=== PATIENT | female | born 1960 | race Caucasian/White ===

== ENCOUNTER 2016-12-18 12:15 | Day surgery (SDC) | payer BC ==
[~2016-12-18 12:15] MED LIST: Acetaminophen TAB* 325 MG PO PRN; Acetylcholine 1:100 OPTH* OPHTH.SOLN ONE; Buffered Lidocaine 0.9% SYRIN* 5 ML/SYR SYRINGE INTRADERM ONE; Hyaluronidase OVINE* 200 UNIT/ML ML SUBCUT ONE; Lidocaine 1% MPF* 2 ML VIAL ONE; Lidocaine 2% EPI 1:200000 MPF* 20 ML VIAL ONE; Lidocaine 2% PF* 10 ML AMP ONE; Lidocaine 2% W/EPI 1:100,000* 20 ML MDV ONE; Neomycin/Polymy/Dex OPTH.SUSP* MAXITROL 0.1% 5 ML ONE; Phenylephrine 2.5% OPTH.SOL* 2 ML BTL ONE; Povidone Iodine 5% OPTH* 30 ML BTL ONE; Sodium Bicarbonate 8.4% SYR* 10 ML SYRINGE ONE; Triamcinolone OPHTH Inj (NF) 40 MG/ML 1 ML VIAL *** OPHTH USE ONLY ONE
[2016-12-18] MEDS ORDERED: Proparacaine 0.5% OPHTH.SOL* 15 ML BTL ONE (12:41)
[2016-12-18] MEDS ORDERED: Midazolam* 1 MG/ML 2 ML VIAL (2 MG) ONE (13:50)
[2016-12-18] MEDS ORDERED: fentaNYL* 50 MCG/ML 2 ML VIAL (100 MCG VIAL) ONE (13:50)
[2016-12-18] MEDS ORDERED: BSS OPTH.SOL* BTL ONE (14:06)
[2016-12-18 14:42] VITALS: BP 138/64
--- NOTE | 2016-12-19 03:24 | OP ---
DATE OF OPERATION: 12/18/16 - [facility] DATE OF : 60 SURGEON: Jayson Beckett MD ANESTHESIA: Local with MAC. PREOPERATIVE DIAGNOSES: Uncontrolled glaucoma, left eye, vitreous prolapse, and malpositioned implant. POSTOPERATIVE DIAGNOSES: Uncontrolled glaucoma, left eye, vitreous prolapse, and malpositioned implant. OPERATIVE PROCEDURE: IOL refixation and an anterior vitrectomy, left eye. COMPLICATIONS: None. DESCRIPTION OF PROCEDURE: The patient was given retrobulbar anesthesia in the operating, 50:50 mixture of 2% lidocaine with epinephrine and 0.75 of Marcaine, 4 cc were given in the muscle cone without difficulty. Eye was prepped and draped in the usual sterile fashion and then inspected. The implant was found to be freely mobile and decentered inferiorly. There was a small posterior capsular opening with vitreous herniating through the opening above the lens and into the Ahmed draining tube, which was at the 2 o'clock position. A 2 mm MDR was used to make an incision at the clear cornea at the 3 o'clock position and the 7 o'clock positions. 1% lidocaine with epinephrine was infused into the anterior chamber. DisCoVisc infused into the anterior chamber. Triesence was infused into the anterior chamber to highlight the vitreous gel. This was removed with thorough anterior vitrectomy, which was performed bimanually. Vitreous was completely removed and removed through the posterior capsular opening. Anterior chamber was refilled with DisCoVisc. There was an iris adhesion at 4 o'clock that was released. The decision was made to fixate the IOL to the iris since the patient had a hemangioma of the conjunctiva and glaucoma, and I wanted to preserve the conjunctiva for future possible surgeries. The implant optic was prolapsed anterior to the iris, used in the anterior chamber to constrict the pupil posterior to the optic. The haptic was sutured after dialing the lens into a good position to the mid peripheral iris using an interrupted 10-0 Prolene suture in a McCannel fashion at the 10 o'clock and 4 o'clock positions. The optic was then prolapsed back into the posterior chamber. The lens was well centered. Again, Triesence infused into the anterior chamber and further anterior vitrectomy was attempted , however there was actually no free vitreous. The 30-gauge cannula was then inserted with balanced salt solution into the mid valve tube opening and mid valve irrigated. Then anterior chamber was refilled with balanced salt solution. Topical Maxitrol was given and the eye was patched. [id number]/[facility] #: [id number] LETICIA
== END 2016-12-18 15:00 | disposition home or self-care (01) ==
LOC: OREAST 12:15
PROVIDERS: ATTEND Specialist
DX: H40.52X2 Glaucoma secondary to other eye disorders, left eye, moderate stage (principal); T85.22XA Displacement of intraocular lens, initial encounter; J44.9 Chronic obstructive pulmonary disease, unspecified; D69.6 Thrombocytopenia, unspecified; F17.210 Nicotine dependence, cigarettes, uncomplicated; I10 Essential (primary) hypertension; Y83.1 Surgical operation with implant of artificial internal device as the cause of abnormal reaction of the patient, or of later complication, without mention of misadventure at the time of the procedure
CPT/HCPCS: A9270-GY; J2001; J2250; J3010

== ENCOUNTER 2019-08-19 08:49 | Day surgery (SDC) | payer BC ==
--- NOTE | 2019-08-11 14:59 | HP ---
CC: Dr. Jony Walsh * PREOPERATIVE HISTORY AND PHYSICAL: DATE OF ADMISSION: 08/19/19 This patient is scheduled for same-day surgery admission by Dr. Karin Ortiz on , 08/19/19. DATE OF PREOPERATIVE HISTORY AND EXAMINATION: 08/10/19. ATTENDING SURGEON: Dr. Karin Ortiz * (dictated by Leslie Lopez NP). CHIEF COMPLAINT: Multinodular goiter. HISTORY OF PRESENT ILLNESS: The patient is a 59-year-old female with a history of hypertension, who presented to Dr. Ortiz with multinodular goiter. She states that she was first found to have multiple thyroid nodules in 2011 based on physical exam by Dr. Pittman. At that time, she underwent fine-needle aspiration biopsy, which was benign. She states that on a recent CT of the chest (she has a right lung nodule being followed by Dr. Arreaga). She was found to have an enlarged thyroid, which prompted a repeat thyroid ultrasound, which identified the multinodular goiter that had grown significantly since her study in 2011. The patient denies dysphagia, dysphonia, and dyspnea. She mainly has complaints of recurrent sinus infections and chronic cough. She denies any history of head or neck radiation or neck surgery; she has no family history of thyroid cancer, her mother did have a large goiter. Dr. 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 Dr. Ortiz reviewed the findings with the patient and recommended right thyroid lobectomy and the patient is agreeable to the plan. Dr. Ortiz discussed the nature of the surgical procedure, the rationale for the procedure, the relevant risks and benefits and today I reviewed the expected postoperative care and recovery. The patient has had a chance to ask questions and stated that she understands the information and is satisfied with the answers given to her questions. She will sign surgical consent on the day of surgery. PAST MEDICAL HISTORY: Hypertension; GERD; hypercholesterolemia; right lung nodule followed by Dr. Arreaga for the past 3 years, no significant change in size ; idiopathic thrombocytopenia also followed by Dr. 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 PAST SURGICAL HISTORY: Nasal surgery 2011, laparoscopic cholecystectomy, craniotomy in 1997 with a titanium plate inserted, left eye surgery in 1994 and left oophorectomy. MEDICATIONS: 1. Latanoprost 0.005%, instill 1 drop in the left eye at bedtime. 2. Omeprazole 20 mg p.o. daily. 3. Vitamin B12 ER 1 tablet p.o. daily. 4. Zinc 1 tablet daily. 5. Fish oil 1000 mg p.o. b.i.d. 6. CoQ10 one tablet daily. 7. Simvastatin 40 mg p.o. daily. 8. Metoprolol ER 100 mg p.o. daily. 9. Symbicort 80/4.5 mcg per actuation 2 puffs b.i.d. 10. Nicorette gum as needed as she is trying to quit smoking. 11. Multivitamin daily. 12. Losartan 100 mg p.o. daily. 13. Effexor 75 mg p.o. daily. 14. Ventolin 2 puffs every 4 hours as needed. 15. Spiriva 2 inhalations every morning as needed. 16. Timolol 0.5% eyedrops as directed. 17. Acidophilus daily. 18. Zyrtec 10 mg daily. 19. Sudafed 12 Hour daily as needed. 20. Magnesium 250 mg daily. 21. Turmeric 500 mg p.o. daily. ALLERGIES: TRAMADOL with unspecified reactions, but she has tolerated oxycodone , acetaminophen in the past. REVIEW OF SYSTEMS: Constitutional: No fevers, chills, excessive fatigue, or weight loss. General: No history of deep vein thrombosis or pulmonary embolism. No bleeding tendencies or blood transfusions. No anesthesia complications. ENMT: No significant visual difficulties, history of glaucoma, her hearing is somewhat diminished. She denies any current sinus infection or sore throat. Endocrine: No diabetes, thyroid disease as described in history of present illness. Respiratory: No dyspnea on exertion or chronic cough. Cardiovascular: No anginal chest pain or palpitations. Gastrointestinal: No nausea, vomiting, diarrhea, GI bleeding or constipation. Genitourinary: No dysuria. Musculoskeletal: Chronic bilateral knee pain. Integumentary: No chronic rashes or skin changes. Neurologic: No headache or blurred vision or areas of focal weakness or numbness. Psychiatric: No reported anxiety or insomnia; her 9 months ago and she is in grief counseling. FAMILY HISTORY: Mother with a history of type 2 diabetes and hypertension. Paternal grandmother with a history of ALS. No known anesthesia complications, bleeding tendencies, or clotting disorders. SOCIAL HISTORY: She is ; she is currently smoking up to a pack of cigarettes per day and is trying to quit. She denies alcohol use and has been sober for 20 years. She denies the use of other substances. PHYSICAL EXAMINATION GENERAL SURVEY: The patient is a 59-year-old obese female, well developed, well nourished, in no acute distress. VITAL SIGNS: Height 66 inches, weight 217 pounds, body mass index 36. Blood pressure 140/82, pulse 80 and regular, respiratory rate 18, temperature 97.8 tympanic. HEENT: Benign. NECK: Supple. No cervical lymphadenopathy. No obvious thyromegaly, but palpation reveals nodules bilaterally. LUNGS: Breath sounds bilaterally clear and equal. HEART: Regular rate and rhythm. No murmurs or rubs appreciated. ABDOMEN: Active bowel sounds, soft, nondistended, nontender throughout. BACK: No CVA tenderness. PELVIC: Exam deferred. RECTAL: Exam deferred. EXTREMITIES: Warm without edema or skin ulceration. NEUROLOGIC: Alert and oriented x3. Steady gait. SKIN: Birthmark over the left side of her face. No other skin changes. IMPRESSION: Multinodular goiter; Hurthle cell neoplasm. PLAN: Same-day surgery admission for right thyroid lobectomy by Dr. Ortiz on , 08/19/19. HENNA LOPEZ NP [id number]/[facility] #: [id number] LETICIA
[~2019-08-19 08:49] MED LIST changes: -Acetaminophen TAB* 325 MG PO PRN; -Acetylcholine 1:100 OPTH* OPHTH.SOLN ONE; -Buffered Lidocaine 0.9% SYRIN* 5 ML/SYR SYRINGE INTRADERM ONE; +Buffered Lidocaine 1% SYRIN* 1 ML/SYRINGE INTRADERM ONE; +Dexamethasone IV* 4 MG/ML 1 ML (4 MG) ONE; +Famotidine IV* 10 MG/ML 2 ML (20 mg) IV ONE; -Hyaluronidase OVINE* 200 UNIT/ML ML SUBCUT ONE; +KETAMINE HCL* 50 MG/ML 10 ML VIAL ONE; +Lactated Ringers 1000 ML Bag* 1,000 ML IV SCH; -Lidocaine 1% MPF* 2 ML VIAL ONE; -Lidocaine 2% EPI 1:200000 MPF* 20 ML VIAL ONE; +Lidocaine 2% PF * 5 ML VIAL ONE; -Lidocaine 2% PF* 10 ML AMP ONE; -Lidocaine 2% W/EPI 1:100,000* 20 ML MDV ONE; +Midazolam* 1 MG/ML 5 ML VIAL (5 MG) ONE; -Neomycin/Polymy/Dex OPTH.SUSP* MAXITROL 0.1% 5 ML ONE; +Ondansetron INJ* 2 MG/ML VIAL ONE; -Phenylephrine 2.5% OPTH.SOL* 2 ML BTL ONE; -Povidone Iodine 5% OPTH* 30 ML BTL ONE; +Propofol* 10 MG/ML 20 ML BTL ONE; -Sodium Bicarbonate 8.4% SYR* 10 ML SYRINGE ONE; +Succinylcholine* 20 MG/ML 10 ML VIAL ONE; -Triamcinolone OPHTH Inj (NF) 40 MG/ML 1 ML VIAL *** OPHTH USE ONLY ONE; +fentaNYL* 50 MCG/ML 2 ML VIAL (100 MCG VIAL) ONE
[2019-08-19] MEDS ORDERED: Buffered Lidocaine 1% SYRIN* 1 ML/SYRINGE INTRADERM ONE (09:06)
[2019-08-19] MEDS ORDERED: Famotidine IV* 10 MG/ML 2 ML (20 mg) ONE (09:06)
[2019-08-19] MEDS ORDERED: Bupivacaine 0.25% SDV* 30 ML ONE (09:40)
[2019-08-19] MEDS ORDERED: Lidocaine 1% INJ* 10 MG/ML 30 ML SDV ONE (09:40)
--- NOTE | 2019-08-19 09:56 | PN ---
Progress Note - Progress Note Date of Service: 08/19/19 Note: Surgery Progress Note Patient is a 59 yo F with a right thyroid nodule that was biopsied as [place] IV, suspicious for Hurthle cell neoplasm. She presents for a right thyroid lobectomy. I explained the surgery (right thyroid lobectomy) to the patient in detail and discussed at length the risks, benefits and alternatives. The risks include but are not limited to bleeding that can in rare circumstances require reoperation or result in airway compromise, wound infection, injury to the recurrent laryngeal nerve which may result in permanent hoarseness and hypoparathyroidism. Other general risks include scarring, injury of adjacent anatomic structures, poor wound healing and reactions to medications. The patient understands that thyroid hormone replacement may be required postoperatively. Expectations regarding recovery and return to normal activities were discussed.
[2019-08-19] MEDS ORDERED: VASOPRESSIN 20 UNITS/ML 1 ML VIAL ONE (10:36)
[2019-08-19] MEDS ORDERED: EPHEDrine (Pressors)* 50 MG/ML VIAL ONE (10:44)
[2019-08-19] MEDS ORDERED: Phenylephrine 40 MCG/ML SYRINGE ONE (10:45)
[2019-08-19] MEDS ORDERED: Norepinephrine VIAL* 1 MG/ML 4 ML VIAL ONE (11:15)
[2019-08-19] MEDS ORDERED: fentaNYL* 50 MCG/ML 2 ML VIAL (100 MCG VIAL) IV PRN (11:35)
[2019-08-19] MEDS ORDERED: Ondansetron INJ* 2 MG/ML VIAL IV PRN (11:35)
[2019-08-19] MEDS ORDERED: Naloxone* 0.4 MG/ML 1 ML VIAL IV PRN (11:35)
[2019-08-19] MEDS ORDERED: oxyCODONE/Acetamin 5/325 MG* TAB PO PRN (12:16)
[2019-08-19] MEDS ORDERED: Acetaminophen IV 1GM/100ML * 100 ML ONE (15:19)
[2019-08-19 17:54] VITALS: BP 130/65
--- NOTE | 2019-08-19 20:36 | OP ---
CC: Dr. Jony Walsh * DATE OF OPERATION: 08/19/19 - [facility] DATE OF : 60 SERVICE: General Surgery ATTENDING SURGEON: Karin Ortiz MD. MATERIALS BRANCH CHIEF: Leslie Hunter NP ANESTHESIOLOGIST: Dr. Padilla Cohen. PREP-OP DIAGNOSIS: Large right thyroid nodule, [place] IV. POST-OP DIAGNOSIS: Large right thyroid nodule, [place] IV. OPERATIVE PROCEDURE: Right thyroid lobectomy. ESTIMATED BLOOD LOSS: Minimal, less than 10 cc. SPECIMEN: Right thyroid lobe. INDICATIONS FOR SURGERY: Ms. Figueredo is a very pleasant 59-year-old female with a history of multinodular goiter. She underwent FNA biopsies of her right sided, isthmus and left sided thyroid nodules. Her right thyroid nodule returned as positive for [place] IV, suspicious for Hurthle cell neoplasm. Given that the malignancy risk for this diagnosis is up to 30%, the patient wished to undergo a right thyroid diagnostic lobectomy. She understood that the risks included, but were not limited to, bleeding, infection, injury to nearby structures such as recurrent laryngeal nerve. She understood the alternatives and benefits and she wished to proceed. DESCRIPTION OF PROCEDURE: The patient was brought back to the operating room and placed on the operating table in the supine position. Sequential compression devices were placed in the bilateral lower extremities for DVT prophylaxis. No antibiotics were administered. General endotracheal anesthesia was induced. The electrodes from the nerve monitor were attached. Next, a time-out was performed prior to administering local anesthesia to the neck, which consisted of 1% lidocaine and 0.25% Marcaine. After this was done, her neck was prepped and draped in normal sterile fashion. An additional time- out was performed verifying the patient's name, date of , and the procedure to be performed, which was a right thyroid lobectomy. An approximately 4 cm incision was made in her neck in a natural crease line 2 fingerbreadths above the sternal notch. The skin was divided down to the subcutaneous tissue. The platysma was divided, and the inferior and superior subplatysmal flaps were then developed. The median raphe between the strap muscles was identified and divided and the trachea was noted at the midline. Next, the isthmus of the thyroid lobe was divided at the midline just flushed with the left thyroid lobe. Once this was done, the medial attachments of the right thyroid lobe were divided using LigaSure. The space of Gilman between the right upper lobe and the cricothyroid muscle was developed and divided and then attention was turned towards retracting the strap muscles off of the right thyroid lobe and developing the lateral space. She had had previous biopsy on this site, and there were many adhesions of the strap muscle to the right thyroid lobe. The middle thyroid vein was identified and divided, and after this the superior pole vessels were isolated and divided using a combination of 2-0 silk sutures and LigaSure. After this, the right thyroid lobe (which was quite enlarged with her thyroid nodule) was rotated anteriorly and medially out of the neck. The recurrent laryngeal nerve was then identified both visually and with the nerve monitor. After this was done, right thyroid lobe was able to be divided off the trachea using LigaSure with great care to avoid injury to the recurrent laryngeal nerve. It was then examined for parathyroid glands. None were identified. The upper pole was marked and carried off the table as specimen. The right upper parathyroid was identified just posterior to the recurrent laryngeal nerve. The right lower parathyroid was not identified definitively, but did not appear to be on the specimen after careful examination. After this, hemostasis was obtained in the right lateral neck. Tisseel was placed. The strap muscles were then reapproximated using interrupted 4-0 Vicryl sutures. The platysma was reapproximated using 4-0 Vicryl sutures. The skin was closed using a running 5-0 Prolene suture. Sterile dressings were then placed. The patient's anesthesia was reversed, and she was taken to PACU in stable condition. At the end of the case, all counts were correct and I was present during the entirety of the case. [id number]/[facility] #: [id number] LETICIA
== END 2019-08-19 18:32 | disposition home or self-care (01) ==
LOC: OR 08:49
PROVIDERS: ATTEND Surgery
DX: E04.2 Nontoxic multinodular goiter (principal); I10 Essential (primary) hypertension; K21.9 Gastro-esophageal reflux disease without esophagitis; E78.00 Pure hypercholesterolemia, unspecified; R91.1 Solitary pulmonary nodule; D69.3 Immune thrombocytopenic purpura; F17.210 Nicotine dependence, cigarettes, uncomplicated
CPT/HCPCS: 88307; C1776; J0330; J1100; J2250; J2405; J2704; J3010; J3490

== ENCOUNTER 2020-04-28 13:21 | Inpatient (IN) ==
[2020-04-28] MEDS ORDERED: Vancomycin 1,500 MG in NS 0.9% 250 ml 250 ML IVPB ONE (16:56)
[2020-04-28 17:22] LABS: Hematocrit 45 % (35-47); Mean Corpuscular HGB Conc 33 g/dL (31-36); Mean Corpuscular Hemoglobin 29 pg (27-31); Mean Corpuscular Volume 88 fL (80-97); Mean Platelet Volume 9.9 fL (7.4-10.4); Platelet Count 104 10^3/uL (150-450); Red Blood Count 5.13 10^6 /uL (3.70-4.87); Red Cell Distribution Width 14 % (10-15); White Blood Count 16.4 10^3/uL (3.5-10.8)
[2020-04-28 17:24] LABS: ABS Basophils 0.1 10^3/ul (0-0.2); ABS Eosinophils 0.2 10^3/ul (0-0.6); ABS Lymphocytes 2.6 10^3/ul (1.0-4.8); ABS Monocytes 1.6 10^3/ul (0-0.8); ABS Neutrophils 11.8 10^3/ul (1.5-7.7); Eosinophil % 1.3 %; Lymphocyte % 15.7 %
[2020-04-28 17:31] LABS: Activated Partial Thrombo Time 29.3 seconds (26.0-38.0); INR 1.13 (0.82-1.09)
[2020-04-28 17:34] LABS: Troponin I 0.01 ng/mL (<0.03)
[2020-04-28 18:15] LABS: Albumin 4.1 g/dL (3.2-5.2); CO2 Carbon Dioxide 28 mmol/L (22-32); Calcium 9.5 mg/dL (8.6-10.3); Chloride 99 mmol/L (101-111); Sodium 136 mmol/L (135-145)
[2020-04-28 18:21] LABS: ALT 29 U/L (7-52); Albumin/Globulin Ratio 1.1 (1-3); Alkaline Phosphatase 121 U/L (34-104); Anion Gap 9 mmol/L (2-11); BUN/Creatinine Ratio 23.5 (8-20); Blood Urea Nitrogen 19 mg/dL (6-24); EGFR African American 87.3 (>60); EGFR Non-African American 72.1 (>60); Globulin 3.7 g/dL (2-4); Glucose 93 mg/dL (70-100); Total Protein 7.8 g/dL (6.4-8.9)
[2020-04-28] MEDS ORDERED: Iohexol 300 (CONTRAST) 10 ML SDV IV ONE (18:50)
[2020-04-28 18:59] LABS: Urine Appearance Cloudy; Urine Bilirubin Negative (Negative); Urine Blood Negative (Negative); Urine Color Amber; Urine Glucose Negative (Negative); Urine Ketones Negative (Negative); Urine Nitrite Negative (Negative); Urine Protein 3+(>=500 mg/dL) (Negative); Urine Urobilinogen Negative (Negative)
[2020-04-28 19:00] LABS: Urine Bacteria 2+ (Absent); Urine Red Blood Cell 3+(>10/hpf) (Absent); Urine Squamous Epithelial Cell Present (Absent); Urine White Blood Cell 1+(6-10/hpf) (Absent)
[2020-04-28] MEDS ORDERED: Vancomycin 1,000 MG in NS 0.9% 250 ml 250 ML IVPB ONE (20:31)
[2020-04-28] MEDS ORDERED: Morphine 2 MG/ML SYRINGE IV PRN (20:31)
[2020-04-28] MEDS ORDERED: Albuterol HFA INHALER 8 gm MDI INH PRN (20:53)
[2020-04-28] MEDS ORDERED: Mupirocin 2% OINT TUBE TOPICAL SCH (21:00)
[2020-04-28] MEDS ORDERED: Vancomycin per Pharmacy 1 EA NOTE FOLLOW UP SCH (21:00)
[2020-04-28] MEDS: Ondansetron 4 mg VIAL 2 MG/ML 2 ml VIAL IV PRN (21:20)
[2020-04-28] MEDS: HYDROcodone/ACETAMIN 5/325 mg TAB PO PRN (21:20)
[2020-04-28] MEDS ORDERED: Heparin 5000 UNITS/ML 1 mL VIAL SUBCUT SCH (22:00)
[2020-04-28 22:58] LABS: Activated Partial Thrombo Time 25.8 seconds (26.0-38.0); INR 1.12 (0.82-1.09)
[2020-04-28] MEDS ORDERED: Cefepime 2 GM IV - ED ONCE IV ONE (23:45)
[2020-04-29] MEDS: Cefepime 2 GM in Dextrose 2 GM/50 ML BAG IV SCH ×2 (01:09→14:35)
[2020-04-29] MEDS: NS 0.9% 1000 ml BAG 1,000 ML IV SCH ×2 (01:09→14:35)
[2020-04-29] MEDS: Latanoprost 0.005% 2.5 ml BTL LEFT EYE SCH ×2 (01:15→21:12)
[2020-04-29] MEDS: Timolol 0.5% OPTH.SOL BTL LEFT EYE SCH ×3 (01:16→21:11)
[2020-04-29] MEDS: Mupirocin 2% OINT TUBE TOPICAL SCH ×3 (01:17→21:12)
[2020-04-29] MEDS: Vancomycin 1000 MG in NS 0.9% 250 ML IVPB SCH ×3 (02:42→17:59)
[2020-04-29] MEDS: SPIRIVA Respimat (tiotropium) 2.5 mcg/inh Inhaler INH SCH ×2 (02:44→19:56)
[2020-04-29] MEDS: HYDROcodone/ACETAMIN 5/325 mg TAB PO PRN ×3 (04:58→17:59)
[2020-04-29 05:34] LABS: ABS Basophils 0.1 10^3/ul (0-0.2); ABS Eosinophils 0.2 10^3/ul (0-0.6); ABS Lymphocytes 1.5 10^3/ul (1.0-4.8); ABS Monocytes 1.5 10^3/ul (0-0.8); ABS Neutrophils 10.7 10^3/ul (1.5-7.7); Eosinophil % 1.5 %; Hematocrit 44 % (35-47); Hemoglobin 14.7 g/dL (12.0-16.0); Lymphocyte % 10.8 %; Mean Corpuscular HGB Conc 34 g/dL (31-36); Mean Corpuscular Hemoglobin 29 pg (27-31); Mean Corpuscular Volume 88 fL (80-97); Mean Platelet Volume 9.4 fL (7.4-10.4); Platelet Count 112 10^3/uL (150-450); Red Blood Count 4.99 10^6 /uL (3.70-4.87); Red Cell Distribution Width 14 % (10-15)
[2020-04-29 05:38] LABS: INR 1.14 (0.82-1.09)
[2020-04-29 07:58] LABS: Calcium 8.7 mg/dL (8.6-10.3); Potassium 4.1 mmol/L (3.5-5.0)
[2020-04-29 08:03] LABS: BUN/Creatinine Ratio 33.8 (8-20); EGFR African American 112.5 (>60)
[2020-04-29] MEDS: Venlafaxine XR 75 mg PO SCH (08:44)
[2020-04-29] MEDS ORDERED: Midazolam 5 mg/5 ml VIAL 1 mg/ml 5 ml VIAL (5 mg) ONE (11:31)
[2020-04-29] MEDS ORDERED: Propofol 10 MG/ML 20 ML BTL ONE (11:31)
[2020-04-29] MEDS ORDERED: Succinylcholine 200 mg VIAL 20 mg/ml 10 ml VIAL (200 mg) ONE (11:31)
[2020-04-29] MEDS ORDERED: Ondansetron 4 mg VIAL 2 MG/ML 2 ml VIAL ONE (11:31)
[2020-04-29] MEDS ORDERED: fentaNYL 100 mcg/2 ml 50 MCG/ML VIAL ONE ×2 (11:31→13:28)
[2020-04-29] MEDS ORDERED: Lidocaine 2% PF 5 ML VIAL ONE (11:31)
[2020-04-29] MEDS ORDERED: Phenylephrine 40 mcg/mL 10mL (400mcg) SYRINGE ONE (12:36)
[2020-04-29] MEDS ORDERED: Lidocaine 1% w EPI 1:100,000 MDV 20 ML VIAL ONE (12:40)
[2020-04-29] MEDS ORDERED: fentaNYL 100 mcg/2 ml 50 MCG/ML VIAL IV PRN (13:23)
[2020-04-29] MEDS ORDERED: Naloxone 0.4 mg VIAL 0.4 mg/ml 1 ml VIAL IV PRN (13:23)
[2020-04-29] MEDS ORDERED: Ondansetron 4 mg VIAL 2 MG/ML 2 ml VIAL IV PRN (13:23)
[2020-04-29] MEDS ORDERED: Senna TAB 8.6 mg TAB PO PRN (17:33)
[2020-04-30] MEDS: Cefepime 2 GM in Dextrose 2 GM/50 ML BAG IV SCH ×2 (01:03→13:17)
[2020-04-30] MEDS: HYDROcodone/ACETAMIN 5/325 mg TAB PO PRN ×3 (01:18→22:37)
[2020-04-30] MEDS: Vancomycin 1000 MG in NS 0.9% 250 ML IVPB SCH ×2 (01:59→11:06)
[2020-04-30 06:40] LABS: BUN/Creatinine Ratio 28.6 (8-20); Calcium 8.9 mg/dL (8.6-10.3); EGFR African American 155.9 (>60); EGFR Non-African American 128.8 (>60); Potassium 3.9 mmol/L (3.5-5.0)
[2020-04-30 06:46] LABS: ABS Eosinophils 0.2 10^3/ul (0-0.6); ABS Lymphocytes 1.1 10^3/ul (1.0-4.8); ABS Monocytes 1.5 10^3/ul (0-0.8); ABS Neutrophils 8.2 10^3/ul (1.5-7.7); Eosinophil % 1.5 %; Hematocrit 40 % (35-47); Hemoglobin 13.3 g/dL (12.0-16.0); Lymphocyte % 10.3 %; Mean Corpuscular HGB Conc 34 g/dL (31-36); Mean Corpuscular Hemoglobin 30 pg (27-31); Mean Corpuscular Volume 88 fL (80-97); Mean Platelet Volume 9.5 fL (7.4-10.4); Platelet Count 87 10^3/uL (150-450); Red Blood Count 4.51 10^6 /uL (3.70-4.87); Red Cell Distribution Width 14 % (10-15)
[2020-04-30] MEDS: Timolol 0.5% OPTH.SOL BTL LEFT EYE SCH ×2 (08:03→20:21)
[2020-04-30] MEDS: Venlafaxine XR 75 mg PO SCH (08:08)
[2020-04-30] MEDS: Mupirocin 2% OINT TUBE TOPICAL SCH ×2 (08:12→20:22)
[2020-04-30] MEDS ORDERED: Vancomycin Trough Check NOTE FOLLOW UP ONE (09:30)
[2020-04-30] MEDS: Vancomycin 1,250 MG in NS 0.9% 250 ml 250 ML IVPB SCH ×2 (11:26→19:48)
[2020-04-30] MEDS: Heparin 5000 UNITS/ML 1 mL VIAL SUBCUT SCH ×2 (13:17→20:23)
[2020-04-30] MEDS: Ondansetron 4 mg VIAL 2 MG/ML 2 ml VIAL IV PRN (13:26)
[2020-04-30] MEDS ORDERED: Magnesium Hydroxide LIQ 30 ML UDC PO PRN (14:56)
[2020-04-30] MEDS: Latanoprost 0.005% 2.5 ml BTL LEFT EYE SCH (20:23)
[2020-04-30] MEDS: SPIRIVA Respimat (tiotropium) 2.5 mcg/inh Inhaler INH SCH (20:28)
[2020-05-01] MEDS: Cefepime 2 GM in Dextrose 2 GM/50 ML BAG IV SCH (01:45)
[2020-05-01] MEDS: Vancomycin 1,250 MG in NS 0.9% 250 ml 250 ML IVPB SCH (02:43)
[2020-05-01] MEDS: Heparin 5000 UNITS/ML 1 mL VIAL SUBCUT SCH (04:42)
[2020-05-01] MEDS: Timolol 0.5% OPTH.SOL BTL LEFT EYE SCH (08:27)
[2020-05-01] MEDS: Venlafaxine XR 75 mg PO SCH (08:28)
[2020-05-01 08:29] LABS: BUN/Creatinine Ratio 23.5 (8-20); Calcium 8.8 mg/dL (8.6-10.3); EGFR African American 148.8 (>60)
[2020-05-01] MEDS: Mupirocin 2% OINT TUBE TOPICAL SCH (08:29)
[2020-05-01 08:31] LABS: ABS Eosinophils 0.2 10^3/ul (0-0.6); ABS Lymphocytes 1.7 10^3/ul (1.0-4.8); ABS Neutrophils 4.7 10^3/ul (1.5-7.7); Eosinophil % 2.9 %; Hematocrit 43 % (35-47); Hemoglobin 13.6 g/dL (12.0-16.0); Lymphocyte % 22.1 %; Mean Corpuscular HGB Conc 32 g/dL (31-36); Mean Corpuscular Hemoglobin 29 pg (27-31); Mean Corpuscular Volume 92 fL (80-97); Mean Platelet Volume 9.2 fL (7.4-10.4); Nucleated Red Blood Cells % 0.1; Platelet Count 106 10^3/uL (150-450); Red Blood Count 4.68 10^6 /uL (3.70-4.87); Red Cell Distribution Width 15 % (10-15); White Blood Count 7.6 10^3/uL (3.5-10.8)
[2020-05-01 12:28] VITALS: BP 149/77
[2020-05-02] MEDS ORDERED: Vancomycin Trough Check NOTE FOLLOW UP ONE (11:00)
== END 2020-05-01 13:55 | disposition home or self-care (01) | DRG 383 ==
LOC: ED 13:21 → MEDTELE 20:25
PROVIDERS: ADMIT Internal Medicine; ATTEND Internal Medicine